=== PATIENT | female | born 1960 | race Caucasian/White ===

== ENCOUNTER 2017-09-12 19:42 | Emergency (ER) | payer SELFPAY ==
[2017-09-12] MEDS ORDERED: NORMAL SALINE 1000 ML 1,000 ML IV ONE (20:53)
[2017-09-12] MEDS ORDERED: METOCLOPRAMIDE HCL INJ/PF 10 MG/2 ML SDV IV ONE (21:02)
[2017-09-12 21:03] LABS: HEMATOCRIT 43.7 % (36.0-47.0); MEAN CORPUSCULAR HEMOGLOBIN 34.3 pg (27.0-33.4); MEAN CORPUSCULAR HGB CONC 34.3 g/dL (32.0-36.0); MEAN CORPUSCULAR VOLUME 100 fl (80-97); PLATELET COUNT 243 10^3/uL (150-450); RED BLOOD COUNT 4.37 10^6/uL (3.72-5.28); WHITE BLOOD COUNT 9.8 10^3/uL (4.0-10.5)
[2017-09-12] MEDS ORDERED: LORAZEPAM INJ 2 MG/1 ML VIAL IV ONE (21:03)
--- NOTE | 2017-09-12 21:06 | ER Document Report ---
ED General - General Chief Complaint: Near Syncope Stated Complaint: BLOOD PRESSURE PROBLEM Time Seen by Provider: 09/12/17 20:53 Notes: Patient is a 56-year old female without chronic medical issues who presents after a near syncopal episode while at work tonight. The patient reports that when she was driving to work she developed a mild, throbbing, constant headache that was gradual in onset and got progressively worse from that time. She states that she took an Excedrin without any significant relief. She notes that she has had a "sinus headache and sinus pressure" for the last several days and has been taking Mucinex and Sudafed to treat this. She states while at work she became lightheaded and felt like she was about to pass out. She states that she became quite diaphoretic in association with this lightheadedness. She states she lie down and the symptoms did gradually improve and she subsequently came to the hospital. Her blood pressure was noted to be low at work and per EMS was orthostatic. The patient reports that she believes she has been drinking plenty of fluids. She denies a history of similar symptoms in the past. She denies any chest pain, shortness of breath, focal weakness, focal numbness, confusion or vomiting. She has not seen her general doctor regarding today's concerns. TRAVEL OUTSIDE OF THE [place] IN LAST 30 DAYS: No - Related Data Allergies/Adverse Reactions: morphine [Morphine] Allergy (Verified 01/31/15 11:12) Penicillins Allergy (Verified 01/31/15 11:12) Sulfa (Sulfonamide Antibiotics) Allergy (Verified 01/31/15 11:12) hydromorphone HCl [From Dilaudid] Adverse Reaction (Verified 01/31/15 11:12) [place] Past Medical History - General Information source: Patient - Social History Smoking Status: Current Every Day Smoker Chew tobacco use (# tins/day): No Frequency of alcohol use: None Drug Abuse: None Lives with: Spouse/Significant other Family History: CVA - Father, Malignancy - Father with colon cancer Patient has suicidal ideation: No Patient has homicidal ideation: No - Past Medical History Cardiac Medical History: Reports: Hx Hypercholesterolemia - Untreated, noted on labs from 2013 Neurological Medical History: Reports: Hx Migraine Renal/ Medical History: Denies: Hx Peritoneal Dialysis GI Medical History: Reports: Hx Gastroesophageal Reflux Disease Psychiatric Medical History: Denies: Hx Depression Past Surgical History: Reports: Hx Appendectomy, Hx Hysterectomy, Hx Tonsillectomy - Immunizations Hx Diphtheria, Pertussis, Tetanus Vaccination: No Review of Systems - Review of Systems Notes: Constitutional: Negative for fever. HENT: Negative for sore throat. Eyes: Negative for visual changes. Cardiovascular: Negative for chest pain. Positive for near syncope Respiratory: Negative for shortness of breath. Gastrointestinal: Negative for abdominal pain, vomiting or diarrhea. Genitourinary: Negative for dysuria. Musculoskeletal: Negative for back pain. Skin: Negative for rash. Neurological: Negative for headaches, weakness or numbness. 10 point ROS negative except as marked above and in HPI. Physical Exam - Vital signs Vitals: Temp 98.4 F 09/12/17 19:53 Interpretation: Normal Notes: PHYSICAL EXAMINATION: GENERAL: Well-appearing, well-nourished and in no acute distress. HEAD: Atraumatic, normocephalic. EYES: Pupils equal round and reactive to light, extraocular movements intact, sclera anicteric, conjunctiva are normal. ENT: nares patent, oropharynx clear without exudates. Moist mucous membranes. NECK: Normal range of motion, supple without lymphadenopathy LUNGS: Breath sounds clear to auscultation bilaterally and equal. No wheezes rales or rhonchi. HEART: Regular rate and rhythm without murmurs ABDOMEN: Soft, nontender, normoactive bowel sounds. No guarding, no rebound. No masses appreciated. EXTREMITIES: Normal range of motion, no pitting or edema. No cyanosis. NEUROLOGICAL: No focal neurological deficits. Moves all extremities spontaneously and on command. PSYCH: Normal mood, normal affect. SKIN: Warm, Dry, normal turgor, no rashes or lesions noted. Course - Re-evaluation Re-evalutation: 09/12/17 21:03 Presentation of near yncope of unclear etiology although appears to be most consistent with orthostatic hypotension as the patient was noted to have a standing blood pressure of 88 systolic and a sitting blood pressure of 109 for EMS. Patient normotensive, alert, without focal neurologic deficits at time of arrival. Denies syncope was during exertion. No preceding symptoms of palpitations, chest pain, or shortness of breath. Patient asymptomatic at time of arrival. EKG is without evidence of HCOM, right heart strain, ST changes to suggest ischemia, prolong QTc, delta wave, epsilon wave, or Brugada syndrome. Patient denies any family history of sudden cardiac , personal history of of structural heart disease. Patient denies any symptoms to suggest an acute PE , [place], TAD, seizure, or acute GI bleed as the etiology of their syncope today. Patient states that she did have a mild headache prior to the onset of the episode of near syncope which has gotten worse since that time. Her headache did start 3 hours prior to arrival and a CT of the head was obtained to definitively exclude a subarachnoid hemorrhage although a had a very low clinical pretest probability for this given her characterization of the headache. This likewise is noted to be normal. On exam, no murmurs to suggest critical aortic stenosis as possible etiology. Based on overall clinical history, exam findings, vitals, and patients appearance, I feel it is safe for patient to be discharged home at this time with close outpatient follow-up and strict return precautions. Patient is in agreement with this plan, has verbalized indications for return to ED, and questions have been answered. 09/12/17 21:04 - Vital Signs Vital signs: Temp Pulse Resp BP Pulse Ox 98.5 F 25 H 100/60 97 09/12/17 22:31 09/12/17 22:31 09/12/17 22:31 09/12/17 22:31 - Laboratory Result Diagrams: 09/12/17 19:30 09/12/17 19:30 Laboratory results interpreted by me: 09/12/17 09/12/17 19:30 19:30 MCV 100 H MCH 34.3 H Glucose 154 H - Diagnostic Test Radiology reviewed: Image reviewed, Reports reviewed Radiology results interpreted by me: 09/13/17 03:36 CT head: No acute intracranial bleed - EKG Interpretation by Me Additional EKG results interpreted by me: 09/12/17 21:05 Sinus rhythm. Rate 85. No ST elevations or depressions. QTC is 414. Discharge - Discharge Clinical Impression: Near syncope, Orthostatic hypotension Headache Qualifiers: Headache type: unspecified Headache chronicity pattern: acute headache Intractability: not intractable Qualified Code(s): R51 - Headache Condition: Good Disposition: HOME, SELF-CARE Additional Instructions: You were seen today after an episode of passing out. Your EKG here is normal. At this time, we do not feel that your episode of passing out was from any life- threatening cause. Please drink plenty of fluids over the next several days. The CT scan of your head and your labs are reassuring today. Return to emergency department if you have any further episodes of syncope, headache, weakness, numbness, chest pain, or shortness of breath. Please follow up closely with your primary care physician. Forms: Return to Work
[2017-09-12 21:09] LABS: ANION GAP 9 (5-19); BLOOD UREA NITROGEN 17 mg/dL (7-20); CALCIUM 9.6 mg/dL (8.4-10.2); CARBON DIOXIDE 27 mmol/L (22-30); CHLORIDE 106 mmol/L (98-107); GLUCOSE 154 mg/dL (75-110); POTASSIUM 4.1 mmol/L (3.6-5.0); SODIUM 141.5 mmol/L (137-145)
--- NOTE | 2017-09-12 21:41 | RADIOLOGY REPORT (SQ) ---
EXAM DESCRIPTION: CT HEAD WITHOUT COMPLETED DATE/TIME: 09/12/2017 9:33 pm REASON FOR STUDY: headache, syncope COMPARISON: None. TECHNIQUE: Axial images acquired through the brain without intravenous contrast. Images reviewed wi th bone, brain and subdural windows. Additional sagittal and coronal reconstructions were generated. Images stored on PACS. All CT scanners at this facility use dose modulation, iterative reconstruction, and/or weight based d osing when appropriate to reduce radiation dose to as low as reasonably achievable (ALARA). [facility]: Dose Right [facility]: CareDose [facility]: Dose Right [facility]: Teradose 4D [facility]: Smart Compiere RADIATION DOSE: CT Rad equipment meets quality standard of care and radiation dose reduction techniq ues were employed. CTDIvol: 53.2 mGy. DLP: 991 mGy-cm. mGy. LIMITATIONS: None. FINDINGS: VENTRICLES: Normal size and contour. CEREBRUM: No masses. No hemorrhage. No midline shift. No evidence for acute infarction. Normal gra y/white matter differentiation. No areas of low density in the white matter. CEREBELLUM: No masses. No hemorrhage. No alteration of density. No evidence for acute infarction. EXTRAAXIAL SPACES: No fluid collections. No masses. ORBITS AND GLOBE: No intra- or extraconal masses. Normal contour of globe without masses. CALVARIUM: No fracture. PARANASAL SINUSES: Chronic left maxillary sinus disease. SOFT TISSUES: No mass or hematoma. OTHER: No other significant finding. IMPRESSION: NORMAL BRAIN CT WITHOUT CONTRAST. EVIDENCE OF ACUTE STROKE: NO. COMMENT: Quality ID # [id number]: Final reports with documentation of one or more dose reduction techniques (e.g., Automated exposure control, adjustment of the mA and/or kV according to patient size, use of iterative reconstruction technique) TECHNICAL DOCUMENTATION: JOB ID: [id number] [employer]- All Rights Reserved Reading location - IP/workstation name: [email or web address]
[2017-09-12 22:54] VITALS: BP 100/60
--- NOTE | 2017-09-13 00:20 | EKG REPORT ---
SEVERITY:- NORMAL ECG - SINUS RHYTHM : Confirmed by: Bebe Ventura MD 13-Sep-2017 00:19:40
== END 2017-09-12 22:55 | disposition home or self-care (01) ==
LOC: ER 19:42
DX: I95.1 Orthostatic hypotension (principal); R51 Headache; F17.200 Nicotine dependence, unspecified, uncomplicated; E78.00 Pure hypercholesterolemia, unspecified; Z88.6 Allergy status to analgesic agent; Z88.0 Allergy status to penicillin; Z88.2 Allergy status to sulfonamides; Z90.710 Acquired absence of both cervix and uterus
CPT/HCPCS: 93005; 99285; 96361; 96374; 36415; 85027; 80048; 84484; 70450; 93010; J2765; J7030

== ENCOUNTER 2017-09-16 10:43 | Emergency (ER) | payer SELFPAY ==
--- NOTE | 2017-09-16 11:00 | ER Document Report ---
ED Medical Screen (RME) - General Chief Complaint: Dizziness Stated Complaint: BLOOD PRESSURE Time Seen by Provider: 09/16/17 10:59 Mode of Arrival: Wheelchair Information source: Patient Notes: 56-year-old female presents with complaints of lightheadedness dizziness and low blood pressure. Patient notes she was seen recently for similar complaint, blood pressure was 50s over 30s history of syncopal episode and was evaluated here with no significant cause of her complaints. Patient notes she has a history of possible mitral valve prolapse that was diagnosed in her 20s. She denies any chest pain shortness of breath notes today her blood pressure was low again I have greeted and performed a rapid initial assessment of this patient. A comprehensive ED assessment and evaluation of the patient, analysis of test results and completion of the medical decision making process will be conducted by additional ED providers. PHYSICAL EXAMINATION: GENERAL: Well-appearing, well-nourished and in no acute distress. HEAD: Atraumatic, normocephalic. EYES: Pupils equal round extraocular movements intact, conjunctiva are normal. ENT: Nares patent NECK: Normal range of motion LUNGS: No respiratory distress Musculoskeletal: Normal range of motion NEUROLOGICAL: Normal speech, normal gait. PSYCH: Normal mood, normal affect. SKIN: Warm, Dry, normal turgor, no rashes or lesions noted. TRAVEL OUTSIDE OF THE [place] IN LAST 30 DAYS: No - Related Data Allergies/Adverse Reactions: morphine [Morphine] Allergy (Verified 09/16/17 10:44) Penicillins Allergy (Verified 09/16/17 10:44) Sulfa (Sulfonamide Antibiotics) Allergy (Verified 09/16/17 10:44) hydromorphone HCl [From Dilaudid] Adverse Reaction (Verified 09/16/17 10:44) [place] Past Medical History - Past Medical History Cardiac Medical History: Reports: Hx Hypercholesterolemia - Untreated, noted on labs from 2013 Neurological Medical History: Reports: Hx Migraine Renal/ Medical History: Denies: Hx Peritoneal Dialysis GI Medical History: Reports: Hx Gastroesophageal Reflux Disease Psychiatric Medical History: Denies: Hx Depression Past Surgical History: Reports: Hx Appendectomy, Hx Hysterectomy, Hx Tonsillectomy - Immunizations Hx Diphtheria, Pertussis, Tetanus Vaccination: No Physical Exam - Vital signs Vitals: Temp Pulse Resp BP Pulse Ox 97.9 F 73 22 H 114/56 L 100 09/16/17 10:51 07/03/18 10:51 09/16/17 10:51 09/16/17 10:51 09/16/17 10:51 Course - Vital Signs Vital signs: Temp Pulse Resp BP Pulse Ox 97.9 F 73 22 H 114/56 L 100 09/16/17 10:51 09/16/17 10:51 09/16/17 10:51 09/16/17 10:51 09/16/17 10:51
[2017-09-16] MEDS ORDERED: NORMAL SALINE 1000 ML 1,000 ML IV ONE (11:32)
[2017-09-16] MEDS ORDERED: MECLIZINE HCL 25 MG TABLET PO ONE (11:49)
[2017-09-16 12:17] LABS: ABSOLUTE EOSINOPHILS # (AUTO) 0.1 10^3/uL (0.0-0.6); ABSOLUTE LYMPHOCYTES (AUTO) 1.7 10^3/uL (0.5-4.7); ABSOLUTE MONOCYTES (AUTO) 0.6 10^3/uL (0.1-1.4); ABSOLUTE NEUT (AUTO) 8.8 10^3/uL (1.7-8.2); BASOPHILS % (AUTO) 0.3 % (0-2); EOSINOPHILS % (AUTO) 1.1 % (0-6); HEMATOCRIT 47.6 % (36.0-47.0); HEMOGLOBIN 16.4 g/dL (12.0-15.5); LYMPHOCYTES % (AUTO) 15.2 % (13-45); MEAN CORPUSCULAR HEMOGLOBIN 34.1 pg (27.0-33.4); MEAN CORPUSCULAR HGB CONC 34.5 g/dL (32.0-36.0); MEAN CORPUSCULAR VOLUME 99 fl (80-97); PLATELET COUNT 257 10^3/uL (150-450); RED BLOOD COUNT 4.81 10^6/uL (3.72-5.28); RED CELL DISTRIBUTION WIDTH 13.2 % (11.5-14.0); SEGMENTED NEUTROPHILS % (AUTO) 78.4 % (42-78); TOTAL CELLS COUNTED % (AUTO) 100 %; WHITE BLOOD COUNT 11.2 10^3/uL (4.0-10.5)
[2017-09-16 12:28] LABS: APPEARANCE,URINE CLOUDY; BILIRUBIN,URINE NEGATIVE (NEGATIVE); GLUCOSE, URINE NEGATIVE (NEGATIVE); KETONES,URINE TRACE mg/dL (NEGATIVE); LEUKOCYTE ESTERASE,URINE NEGATIVE (NEGATIVE); NITRITE,URINE NEGATIVE (NEGATIVE); PROTEIN,URINE 30 mg/dL (NEGATIVE); URINE SPECIFIC GRAVITY 1.031
[2017-09-16 12:30] LABS: COLOR,URINE YELLOW
--- NOTE | 2017-09-16 12:36 | RADIOLOGY REPORT (SQ) ---
EXAM DESCRIPTION: CHEST 2 VIEWS COMPLETED DATE/TIME: 09/16/2017 12:23 pm REASON FOR STUDY: sycnope dizziness COMPARISON: 01/31/2015 EXAM PARAMETERS: NUMBER OF VIEWS: two views TECHNIQUE: Digital Frontal and Lateral radiographic views of the chest acquired. RADIATION DOSE: NA LIMITATIONS: none FINDINGS: LUNGS AND PLEURA: No opacities, masses or pneumothorax. No pleural effusion. MEDIASTINUM AND HILAR STRUCTURES: No masses or contour abnormalities. HEART AND VASCULAR STRUCTURES: Heart normal size. No evidence for failure. BONES: No acute findings. HARDWARE: None in the chest. OTHER: No other significant finding. IMPRESSION: NO ACUTE RADIOGRAPHIC FINDING IN THE CHEST. TECHNICAL DOCUMENTATION: JOB ID: [id number] [employer]- All Rights Reserved Reading location - IP/workstation name: [email or web address]
[2017-09-16 12:37] LABS: ALANINE AMINOTRANSFERASE 31 U/L (9-52); ALBUMIN 4.7 g/dL (3.5-5.0); ALKALINE PHOSPHATASE 86 U/L (38-126); ANION GAP 12 (5-19); ASPARTATE AMINO TRANSFERASE 20 U/L (14-36); BILIRUBIN,DIRECT 0.3 mg/dL (0.0-0.4); BILIRUBIN,TOTAL 0.6 mg/dL (0.2-1.3); BLOOD UREA NITROGEN 21 mg/dL (7-20); CALCIUM 10.8 mg/dL (8.4-10.2); CARBON DIOXIDE 28 mmol/L (22-30); CHLORIDE 105 mmol/L (98-107); GLUCOSE 88 mg/dL (75-110); POTASSIUM 4.4 mmol/L (3.6-5.0); SODIUM 144.9 mmol/L (137-145); TOTAL PROTEIN 7.6 g/dL (6.3-8.2)
--- NOTE | 2017-09-16 13:47 | ER Document Report ---
ED General - General Chief Complaint: Dizziness Stated Complaint: BLOOD PRESSURE Time Seen by Provider: 09/16/17 10:59 Mode of Arrival: Wheelchair TRAVEL OUTSIDE OF THE [place] IN LAST 30 DAYS: No - HPI Patient complains to provider of: Dizziness near syncope Notes: Patient coming in for evaluation of dizziness near syncope. Patient was seen approximately approximately on September 12 for similar symptoms at that time was found to be orthostatic by EMS given IV fluids workup that time was otherwise negative patient was discharged home. Patient states this morning woke up did not eat breakfast as that she had taken 11 to a doctor's appointment while doctor's appointment upon standing became lightheaded dizzy and almost passed out. Patient brought to the ER for further evaluation. Patient denies any symptoms at this time. Other than change in position patient denies any other exacerbating factors. Patient is very concerned is that this is abruptly started in the last few days. Patient states she is hydrating herself at home denies any recent travel denies any sick contacts denies any changes to any medications. Patient does smoke no alcohol no drugs - Related Data Allergies/Adverse Reactions: morphine [Morphine] Allergy (Verified 09/16/17 10:44) Penicillins Allergy (Verified 09/16/17 10:44) Sulfa (Sulfonamide Antibiotics) Allergy (Verified 09/16/17 10:44) hydromorphone HCl [From Dilaudid] Adverse Reaction (Verified 09/16/17 10:44) [place] Past Medical History - General Information source: Patient - Social History Smoking Status: Current Every Day Smoker Chew tobacco use (# tins/day): No Frequency of alcohol use: None Drug Abuse: None Family History: CVA - Father, Malignancy - Father with colon cancer Patient has suicidal ideation: No Patient has homicidal ideation: No - Past Medical History Cardiac Medical History: Reports: Hx Hypercholesterolemia - Untreated, noted on labs from 2013 Neurological Medical History: Reports: Hx Migraine Renal/ Medical History: Denies: Hx Peritoneal Dialysis GI Medical History: Reports: Hx Gastroesophageal Reflux Disease Psychiatric Medical History: Denies: Hx Depression Past Surgical History: Reports: Hx Appendectomy, Hx Hysterectomy, Hx Tonsillectomy - Immunizations Hx Diphtheria, Pertussis, Tetanus Vaccination: No Review of Systems - Review of Systems Constitutional: No symptoms reported EENT: No symptoms reported Cardiovascular: Syncope, Dizziness Respiratory: No symptoms reported Gastrointestinal: No symptoms reported Genitourinary: No symptoms reported Female Genitourinary: No symptoms reported Musculoskeletal: No symptoms reported Skin: No symptoms reported Hematologic/Lymphatic: No symptoms reported Neurological/Psychological: No symptoms reported -: Yes All other systems reviewed and negative Physical Exam - Vital signs Vitals: Temp Pulse Resp BP Pulse Ox 97.9 F 73 22 H 114/56 L 100 09/16/17 10:51 09/16/17 10:51 09/16/17 10:51 09/16/17 10:51 09/16/17 10:51 Interpretation: Normal - General General appearance: Appears well, Alert - HEENT Head: Normocephalic, Atraumatic Eyes: Normal Pupils: PERRL - Respiratory Respiratory status: No respiratory distress Chest status: Nontender Breath sounds: Normal Chest palpation: Normal - Cardiovascular Rhythm: Regular Heart sounds: Normal auscultation Murmur: No - Abdominal Inspection: Normal Distension: No distension Bowel sounds: Normal Tenderness: Nontender Organomegaly: No organomegaly - Back Back: Normal, Nontender - Extremities General upper extremity: Normal inspection, Nontender, Normal color, Normal ROM , Normal temperature General lower extremity: Normal inspection, Nontender, Normal color, Normal ROM , Normal temperature, Normal weight bearing. No: Lindsay's sign - Neurological Neuro grossly intact: Yes Cognition: Normal Orientation: AAOx4 [place] Coma Scale Eye Opening: Spontaneous [place] Coma Scale Verbal: Oriented [place]re Coma Scale Motor: Obeys Commands Alexandre Coma Scale Total: 15 Speech: Normal Motor strength normal: LUE, RUE, LLE, RLE Sensory: Normal - Psychological Associated symptoms: Normal affect, Normal mood - Skin Skin Temperature: Warm Skin Moisture: Dry Skin Color: Normal Course - Re-evaluation Re-evalutation: 09/16/17 14:36 Patient's clinical examination not reveal any concerning pathology. Patient's laboratory studies does show at this time hemoconcentration along with concentrated urine prior to last visit. Chest x-ray does not show any signs of acute findings. EKG was reviewed no changes from previous visit. At this time patient's presentations on both occurrences do seem to be more orthostatic. Long discussion with patient at bedside she will need follow-up as outpatient at this time there is no criteria where she will need to be admitted for. Patient was given cardiology follow-up for further evaluation along with PCP follow-up. The patient has near syncope as the patient's near syncope is not suggestive of pulmonary embolus, cardiac ischemia, aortic dissection, or other serious etiology. Given the extremely low risk of these diagnoses further testing and evaluation for these possibilities does not appear to be indicated at this time. The patient has been instructed to return if the symptoms worsen or change in any way. - Vital Signs Vital signs: Temp Pulse Resp BP Pulse Ox 97.9 F 72 13 111/59 L 92 09/16/17 10:51 09/16/17 12:29 09/16/17 13:01 09/16/17 13:01 09/16/17 13:01 - Laboratory Result Diagrams: 09/16/17 11:50 09/16/17 11:50 Laboratory results interpreted by me: 09/16/17 09/16/17 09/16/17 11:50 11:50 11:50 WBC 11.2 H Hgb 16.4 H Hct 47.6 H MCV 99 H MCH 34.1 H Seg Neutrophils % 78.4 H Absolute Neutrophils 8.8 H BUN 21 H Calcium 10.8 H TSH 0.34 L Urine Protein Urine Ketones Urine Blood Urine Urobilinogen 09/16/17 11:50 WBC Hgb Hct MCV MCH Seg Neutrophils % Absolute Neutrophils BUN Calcium TSH Urine Protein 30 H Urine Ketones TRACE H Urine Blood SMALL H Urine Urobilinogen 2.0 H Discharge - Discharge Clinical Impression: Dizziness, Near syncope Condition: Good Disposition: HOME, SELF-CARE Instructions: Dizziness ([facility]), Near Syncopal Episode ([facility]) Additional Instructions: Laboratory studies show signs of hemoconcentration and concentrated urine which may indicate some signs of dehydration This is likely the cause your episode of dizziness and near passing out today. recommend to stay well-hydrated while at home. Laboratory studies otherwise do not show any critical findings no signs of significant infection no need for antibiotics for no signs of heart damage or signs of cardiac arrhythmia no signs of any surgical pathology causing your episode today. I recommend following up with the physician provided please make sure whenever changing position that you change slowly sitting up for approximate 1-2 minutes before standing standing still for approximate 1-2 minutes before walking. Return to ER for any other concerns Referrals: SEJAL YA MD [ACTIVE STAFF] - Follow up as needed KAYLENE,HEIDY, DO [NO LOCAL MD] - Follow up as needed
[2017-09-16 14:06] VITALS: BP 111/59
== END 2017-09-16 14:15 | disposition home or self-care (01) ==
LOC: ER 10:43
DX: R42 Dizziness and giddiness (principal); R55 Syncope and collapse; F17.200 Nicotine dependence, unspecified, uncomplicated; E78.00 Pure hypercholesterolemia, unspecified; Z88.6 Allergy status to analgesic agent; Z88.0 Allergy status to penicillin; Z88.2 Allergy status to sulfonamides; Z90.710 Acquired absence of both cervix and uterus
CPT/HCPCS: 99284; 96360; 36415; 84443; 85025; 80053; 81001; 84484; 71046; J7030

== ENCOUNTER → 2020-03-03 | Outpatient (CLI) | payer OTHER ==
--- NOTE | 2020-03-03 12:19 | RADIOLOGY REPORT (SQ) ---
EXAM DESCRIPTION: CERV SP 4 OR 5 VIEWS IMAGES COMPLETED DATE/TIME: 03/03/2020 9:33 am REASON FOR STUDY: (M54.13)RADICULOPATHY, CERVICOTHORACIC REGION M54.13 RADICULOPATHY, CERVICOTHORAC IC REGION COMPARISON: None. NUMBER OF VIEWS: Five views. TECHNIQUE: AP, lateral, obliques and odontoid radiographic images acquired of the cervical spine. LIMITATIONS: None. FINDINGS: MINERALIZATION: Normal. ALIGNMENT: Anatomic. VERTEBRAE: Vertebral bodies of normal height. DISCS: The disc spaces are fairly well maintained. There are some marginal osteophytes from C4-C6. FORAMINA: There is mild narrowing of the neural foramina at C4-5 secondary to hypertrophic facet [place] and uncovertebral osteophytes. There is mild narrowing of the neural foramen at C5-6 on the righ t. LATERAL AND POSTERIOR ELEMENTS: Hypertrophic facet changes are seen at multiple levels. HARDWARE: None in the spine. SOFT TISSUES: No masses or calcifications. Lung apices clear. OTHER: No other significant finding. IMPRESSION: Spondylosis and facet arthropathy. No acute finding. TECHNICAL DOCUMENTATION: JOB ID: [id number] [employer]- All Rights Reserved Reading location - IP/workstation name: [email or web address]
== END ==
LOC: RAD 09:07
PROVIDERS: ATTEND Internal Medicine
DX: M47.22 Other spondylosis with radiculopathy, cervical region (principal)
CPT/HCPCS: 72050

== ENCOUNTER 2020-03-23 18:11 | Emergency (ER) | payer OTHER ==
[2020-03-23] MEDS ORDERED: ONDANSETRON HCL INJ/PF 4 MG/2 ML SDV IV ONE (20:39)
[2020-03-23] MEDS ORDERED: MECLIZINE HCL 25 MG TABLET PO ONE (20:39)
[2020-03-23] MEDS ORDERED: NORMAL SALINE 1000 ML 1,000 ML IV ONE (20:39)
--- NOTE | 2020-03-23 20:41 | ER Document Report ---
ED Medical Screen (RME) - General Chief Complaint: Dizziness Stated Complaint: DIZZINESS, NAUSEA, VOMITING, CHILLS Time Seen by Provider: 03/23/20 20:31 Primary Care Provider: CORNELIUS VERAS MD [Primary Care Provider] - Follow up as needed Mode of Arrival: Ambulatory Information source: Patient TRAVEL OUTSIDE OF THE [place] IN LAST 30 DAYS: No - HPI Patient complains to provider of: Nausea, dizziness Notes: 03/23/20 20:40 Patient with complaints of dizziness when she moves. She states that she starts spinning and gets very nauseous and vomits. This last for a few seconds and then resolves. She denies any severe headache. She denies blurred vision. She denies unilateral numbness, tingling, weakness. She states that she got the maternal COVID-19 vaccine yesterday and is concerned that it is a reaction to the vaccine. No fevers. Patient does work in a Covid unit. Exam: Nontoxic, no distress. Lungs clear and equal throughout. Heart sounds normal. No focal abdominal tenderness on limited triage abdominal exam. Cranial nerves II through XII are grossly intact, normal strength to upper and lower extremities. Normal [id number]. Nonfocal neuro exam. An initial examination was made on the patient as part of the triage process, and it was determined a more comprehensive evaluation was necessary. Initial orders were placed and patient was transferred to another provider in the ED who assumed care and finished evaluation and plan. - Related Data Allergies/Adverse Reactions: morphine [Morphine] Allergy (Verified 09/16/17 10:44) Penicillins Allergy (Verified 09/16/17 10:44) Sulfa (Sulfonamide Antibiotics) Allergy (Verified 09/16/17 10:44) hydromorphone HCl [From Dilaudid] Adverse Reaction (Verified 09/16/17 10:44) [place] Home Medications: fioricet prn Past Medical History - Social History Chew tobacco use (# tins/day): No Frequency of alcohol use: None Drug Abuse: None - Past Medical History Cardiac Medical History: Reports: Hx Hypercholesterolemia - Untreated, noted on labs from 2013 Neurological Medical History: Reports: Hx Migraine Renal/ Medical History: Denies: Hx Peritoneal Dialysis GI Medical History: Reports: Hx Gastroesophageal Reflux Disease Psychiatric Medical History: Denies: Hx Depression Past Surgical History: Reports: Hx Appendectomy, Hx Hysterectomy, Hx Tonsillectomy - Immunizations Hx Diphtheria, Pertussis, Tetanus Vaccination: No Physical Exam - Vital signs Vitals: Temp Pulse Resp BP Pulse Ox 98.1 F 71 17 125/60 99 03/23/20 18:59 03/23/20 18:59 03/23/20 18:59 03/23/20 18:59 03/23/20 18:59 Course - Vital Signs Vital signs: Temp Pulse Resp BP Pulse Ox 98.1 F 71 17 125/60 99 03/23/20 18:59 03/23/20 18:59 03/23/20 18:59 03/23/20 18:59 03/23/20 18:59 Doctor's Discharge - Discharge Referrals: CORNELIUS VERAS MD [Primary Care Provider] - Follow up as needed
[2020-03-23 21:50] LABS: ABSOLUTE EOSINOPHILS # (AUTO) 0.1 10^3/uL (0.0-0.6); ABSOLUTE LYMPHOCYTES (AUTO) 1.8 10^3/uL (0.5-4.7); ABSOLUTE MONOCYTES (AUTO) 0.5 10^3/uL (0.1-1.4); ABSOLUTE NEUT (AUTO) 5.3 10^3/uL (1.7-8.2); BASOPHILS % (AUTO) 0.4 % (0-2); EOSINOPHILS % (AUTO) 1.9 % (0-6); HEMATOCRIT 43.5 % (36.0-47.0); LYMPHOCYTES % (AUTO) 23.7 % (13-45); MEAN CORPUSCULAR HEMOGLOBIN 34.3 pg (27.0-33.4); MEAN CORPUSCULAR HGB CONC 34.6 g/dL (32.0-36.0); MEAN CORPUSCULAR VOLUME 99 fl (80-97); PLATELET COUNT 206 10^3/uL (150-450); RED BLOOD COUNT 4.39 10^6/uL (3.72-5.28); RED CELL DISTRIBUTION WIDTH 13.1 % (11.5-14.0); TOTAL CELLS COUNTED % (AUTO) 100 %; WHITE BLOOD COUNT 7.7 10^3/uL (4.0-10.5)
[2020-03-23 21:51] LABS: APPEARANCE,URINE CLEAR; BILIRUBIN,URINE NEGATIVE (NEGATIVE); COLOR,URINE YELLOW; GLUCOSE, URINE NEGATIVE (NEGATIVE); KETONES,URINE 20 mg/dL (NEGATIVE); LEUKOCYTE ESTERASE,URINE NEGATIVE (NEGATIVE); NITRITE,URINE NEGATIVE (NEGATIVE); PROTEIN,URINE 30 mg/dL (NEGATIVE); URINE SPECIFIC GRAVITY 1.021; UROBILINOGEN,URINE NEGATIVE mg/dL (<2.0)
[2020-03-23 22:06] LABS: ALBUMIN 4.3 g/dL (3.5-5.0); ALKALINE PHOSPHATASE 88 U/L (38-126); ANION GAP 5 (5-19); ASPARTATE AMINO TRANSFERASE 23 U/L (14-36); BILIRUBIN,DIRECT 0.1 mg/dL (0.0-0.4); BILIRUBIN,TOTAL 0.5 mg/dL (0.2-1.3); BLOOD UREA NITROGEN 11 mg/dL (7-20); CALCIUM 9.8 mg/dL (8.4-10.2); CARBON DIOXIDE 31 mmol/L (22-30); CHLORIDE 103 mmol/L (98-107); GLUCOSE 88 mg/dL (75-110); POTASSIUM 4.1 mmol/L (3.6-5.0); TOTAL PROTEIN 6.7 g/dL (6.3-8.2)
[2020-03-24] MEDS ORDERED: ONDANSETRON HCL INJ/PF 4 MG/2 ML SDV IV ONE ×2 (01:15→09:12)
[2020-03-24] MEDS ORDERED: NORMAL SALINE 1000 ML 1,000 ML IV ONE (01:30)
--- NOTE | 2020-03-24 06:29 | RADIOLOGY REPORT (SQ) ---
CT of the head: 03/24/2020 5:27 AM [employer] HISTORY: 59-year-old patient with dizziness. COMPARISON: CT the head from 09/12/2017 TECHNIQUE: Multiple axial contiguous images were obtained through the head without intravenous contrast administered. This exam was performed according to our departmental dose-optimization program, which includes automated exposure control, adjustment of the mA and/or KV according to the patient's size and/or use of iterative reconstruction technique. FINDINGS: The ventricles are within normal limits for size. Both globes appear symmetric. The mastoid air cells appear clear. There is minimal mucoperiosteal thickening of the ethmoid sinuses. The calvarium is intact. No extra-axial fluid collection is seen. The tsai-white matter differentiation is within normal limits. No midline shift or mass effect is apparent. There are no findings to suggest acute intracranial hemorrhage. IMPRESSION: No acute intracranial hemorrhage is seen.
--- NOTE | 2020-03-24 06:40 | ER Document Report ---
ED Dizziness/Weakness - General Mode of Arrival: Ambulatory TRAVEL OUTSIDE OF THE [place] IN LAST 30 DAYS: No - Related Data Home Medications: fioricet prn <BIENVENIDO KWOK - Last Filed: 03/24/20 06:52> <JAKUB PEDRO - Last Filed: 03/24/20 09:15> - General Chief Complaint: Dizziness Stated Complaint: DIZZINESS, NAUSEA, VOMITING, CHILLS Time Seen by Provider: 03/23/20 20:31 Primary Care Provider: CORNELIUS VERAS MD [Primary Care Provider] - Follow up in 3-5 days - [facility] Notes: Patient is a 59-year-old female who presents with dizziness. She states she woke up yesterday morning and was dizzy. She feels off balance. Patient states it is worse when she moves her head. It feels like the room is spinning. She had vertigo about 1 month ago. States she had nausea and vomiting with this episode. She denies any ear pain but states that her ears feel full. No chest pain or shortness of breath. Patient states she feels better after ED treatment but is still uncomfortable. Patient states she had the Covid shot the day before this started and was concerned that that could be a side effect. (BIENVENIDO KWOK) - Related Data Allergies/Adverse Reactions: morphine [Morphine] Allergy (Verified 09/16/17 10:44) Penicillins Allergy (Verified 09/16/17 10:44) Sulfa (Sulfonamide Antibiotics) Allergy (Verified 09/16/17 10:44) hydromorphone HCl [From Dilaudid] Adverse Reaction (Verified 09/16/17 10:44) Flushing Past Medical History - General Information source: Patient - Social History Smoking Status: Current Every Day Smoker Chew tobacco use (# tins/day): No Frequency of alcohol use: None Drug Abuse: None Family History: CVA - Father, Malignancy - Father with colon cancer - Past Medical History Cardiac Medical History: Reports: Hx Hypercholesterolemia - Untreated, noted on labs from 2013 Neurological Medical History: Reports: Hx Migraine Renal/ Medical History: Denies: Hx Peritoneal Dialysis GI Medical History: Reports: Hx Gastroesophageal Reflux Disease Psychiatric Medical History: Denies: Hx Depression Past Surgical History: Reports: Hx Appendectomy, Hx Hysterectomy, Hx Tonsillectomy - Immunizations Hx Diphtheria, Pertussis, Tetanus Vaccination: No <BIENVENIDO KWOK - Last Filed: 03/24/20 06:52> Review of Systems <BIENVENIDO KWOK - Last Filed: 03/24/20 06:52> - Review of Systems Notes: CONSTITUTIONAL: No fever, fatigue or weight loss. SKIN: No rash. HENT: No congestion, ear pain, or sore throat. Positive for ear fullness. CARDIOVASCULAR: No chest pain or edema. RESPIRATORY: No cough, shortness of breath, congestion, or wheezing. GASTROINTESTINAL: No abdominal pain, bloody stools or diarrhea. Positive for nausea and vomiting. GENITOURINARY: No dysuria. MUSCULOSKELETAL: No joint pain or swelling. LYMPHATIC: No swollen glands. NEUROLOGIC: No seizures. Positive for chronic migraines. Positive for dizziness. HEMATOLOGIC: No unusual bruising or bleeding. PSYCHIATRIC: No depression or anxiety. (BIENVENIDO KWOK) Physical Exam - General General appearance: Appears well In distress: None <BIENVENIDO KWOK - Last Filed: 03/24/20 06:52> - Vital signs Vitals: Temp Pulse Resp BP Pulse Ox 98.1 F 71 17 125/60 99 03/23/20 18:59 03/23/20 18:59 03/23/20 18:59 03/23/20 18:59 03/23/20 18:59 - General Notes: VITAL SIGNS: Within normal limits. GENERAL: No acute distress, non-toxic appearance. HEAD: Normal with no signs of head trauma. EYES: EOMI, conjunctiva normal, no discharge. Minimal horizontal nystagmus. No vertical nystagmus. EARS: Hearing grossly intact. Bilateral tympanic membranes are normal. NOSE: Normal. NECK: Normal range of motion, no tenderness, supple, no lymphadenopathy, No adenopathy, no JVD. CHEST: Clear breath sounds bilaterally. No wheezes, rales, or rhonchi. CARDIAC: Regular rate and rhythm. S1 and S2, without murmurs, gallops, or rubs . VASCULAR: No Edema. Peripheral pulses normal and equal in all extremities. ABDOMEN: Normal and soft with no tenderness, no masses or pulsatile masses. MUSCULOSKELETAL: Good range of motion of all major joints. Extremities without clubbing, cyanosis or edema. NEUROLOGICAL: Alert and oriented x 3. No focal sensory or strength deficits. Speech normal. Follows commands appropriately. Dizziness is worse with standing up. No dizziness with head turning or eye movement. PSYCHIATRIC: Normal Affect, judgement and mood. SKIN: Normal appearance with no rashes or lesions. (BIENVENIDO KWOK) Course - Laboratory Results Result Diagrams: 03/23/20 21:25 03/23/20 21:25 Critical Laboratory Results Reviewed: No Critical Results - Radiology Results Critical Radiology Results Reviewed: No Critical Results - EKG Interpretation by Me EKG shows normal: Sinus rhythm Rate: Normal Rhythm: NSR When compared to previous EKG there are: Previous EKG unavailable <BIENVENIDO KWOK - Last Filed: 03/24/20 06:52> - Laboratory Results Result Diagrams: 03/23/20 21:25 03/23/20 21:25 <JAKUB PEDRO - Last Filed: 03/24/20 09:15> - Re-evaluation Re-evalutation: 03/24/20 06:56 Patient was treated with Zofran, meclizine, fluids. She states she feels somewhat better. She did ambulate and states it is improved but not back to normal completely. Head CT was negative. I discussed options with the patient. I offered to do an MRI in the ER to make sure there is no posterior stroke. Patient is in agreement with this. If the MRI is negative, likely she can be discharged. I have wrote her for meclizine. She will need to follow-up with her PCP. Final disposition will be done by oncoming ED physician at the end of my shift. (BIENVENIDO KWOK) 03/24/20 09:12 MRI scan has been completed and shows no evidence for stroke. Patient has labyrinthitis dizziness. Patient is status post Covid vaccine a few days ago. Consideration that Covid vaccine may have exacerbated her dizziness. Patient also this discussed with me that she has nausea as well and I will add a Zofran tablet for patient to also be discharged home with. Patient is medically cleared medically stable for discharge at this time. (JAKUB PEDRO) - Vital Signs Vital signs: Temp Pulse Resp BP Pulse Ox 98.5 F 67 16 112/56 L 100 03/24/20 05:48 03/24/20 05:48 03/24/20 05:48 03/24/20 05:48 03/24/20 05:48 - Laboratory Results Laboratory Results Interpreted: 03/23/20 03/23/20 03/23/20 21:20 21:25 21:25 MCV 99 H MCH 34.3 H Carbon Dioxide 31 H Creatinine 0.45 L Urine Protein 30 H Urine Ketones 20 H Urine Blood SMALL H - EKG Interpretation by Me Additional EKG results interpreted by me: 03/24/20 06:40 This rhythm at a rate of 57. QTc 386. ST changes. Artifact present. Similar to previous EKG. (BIENVNEIDO KWOK) Discharge <BIENVENIDO KWOK - Last Filed: 03/24/20 06:52> <JAKUB PEDRO - Last Filed: 03/24/20 09:15> - Discharge Clinical Impression: Dizziness Condition: Stable Disposition: HOME, SELF-CARE Instructions: Dizziness ([facility]) Prescriptions: Meclizine HCl [Antivert 12.5 mg Tablet] 12.5 mg PO BID PRN #14 tab PRN Reason: Ondansetron [Zofran Odt 4 mg Tablet] 1 - 2 tab PO Q4H PRN #15 tab.rapdis PRN Reason: For Nausea/Vomiting Referrals: CORNELIUS VERAS MD [Primary Care Provider] - Follow up in 3-5 days
--- NOTE | 2020-03-24 08:18 | RADIOLOGY REPORT (SQ) ---
EXAM DESCRIPTION: MRI HEAD WITHOUT IMAGES COMPLETED DATE/TIME: 03/24/2020 7:57 am REASON FOR STUDY: dizziness, eval for posterior stroke COMPARISON: None. TECHNIQUE: Multiplanar imaging includes non-contrasted T1, T2, FLAIR, and diffusion with ADC map seq uences. Images stored on PACS. LIMITATIONS: None. FINDINGS: ANATOMY: No anomalies. Normal vascular flow voids. Pituitary fossa normal. CSF SPACES: Normal in size and contour. No hemorrhage. CEREBRUM: Sulci and gyri normal in size and contour. Minimal areas of periventricular and subcortica l T2 signal prolongation, nonspecific but often seen with microangiopathic change. No evidence of he morrhage, mass, or extraaxial fluid collection. POSTERIOR FOSSA: No signal alteration. No hemorrhage. No edema, masses or mass effect. Internal amy tory canals, cerebello-pontine angles, mastoids normal. DIFFUSION IMAGING: Negative for acute or sub-acute infarction. ORBITS: No masses. Globes normal. PARANASAL SINUSES: No fluid levels. Mucosa normal. OTHER: No other significant finding. IMPRESSION: No evidence of acute infarct or other acute intracranial process. EVIDENCE OF ACUTE STROKE: NO. TECHNICAL DOCUMENTATION: JOB ID: [id number] 2010 [employer]- All Rights Reserved Reading location - IP/workstation name: [email or web address]
[2020-03-24] MEDS ORDERED: MECLIZINE HCL 25 MG TABLET PO ONE (09:11)
[2020-03-24 09:44] VITALS: BP 119/55
--- NOTE | 2020-03-24 22:00 | EKG REPORT ---
SEVERITY:- NORMAL ECG - SINUS RHYTHM : Confirmed by: Mateus Saravia 24-Mar-2020 21:59:12
== END 2020-03-24 09:43 | disposition home or self-care (01) ==
LOC: ER 18:11
DX: R42 Dizziness and giddiness (principal); R11.2 Nausea with vomiting, unspecified; F17.200 Nicotine dependence, unspecified, uncomplicated; Z88.0 Allergy status to penicillin; Z88.2 Allergy status to sulfonamides; Z90.710 Acquired absence of both cervix and uterus
CPT/HCPCS: 93005; 96376; 99285; 96361; 96374; 36415; 83690; 85025; 80053; 81001; 84484; 70551; 70450; 93010; J2405; J7030